=== PATIENT | female | born 1985 | race Caucasian/White ===

== ENCOUNTER 2021-01-26 09:52 | Emergency (ER) | payer OTHER ==
[~2021-01-26 09:52] MED LIST: BENADRYL 50MG C50 MG PO; CETIRIZINE-PSE1 EACH PO; COLACE 100MG C100 MG PO; EYE ITCH RELIEF5 ML EYEBOTH; NAPROSYN500 MG PO; PERCOCET 7.5-31 EACH PO; RHINOCORT; STOOL SOFTENER250 MG PO; TURMERIC PO; VITAMIN D35000 UNI1 PO; ZOFRAN4 MG PO; [UNRECOGNIZED DRUG - OTHER] PO; [UNRECOGNIZED DRUG - OTHER] PO; [UNRECOGNIZED DRUG - OTHER] PO
[2021-01-26] MEDS ORDERED: NAPROSYN500 MG PO (11:35)
== END 2021-01-26 11:45 | disposition home or self-care (01) ==
LOC: ER1 09:52
DX: S90.32XA Contusion of left foot, initial encounter (principal); Z79.899 Other long term (current) drug therapy; W22.8XXA Striking against or struck by other objects, initial encounter; Y92.89 Other specified places as the place of occurrence of the external cause
CPT/HCPCS: 73630; 99283